=== PATIENT | female | born 1960 | race Caucasian/White ===

== ENCOUNTER → 2021-10-11 | Outpatient (CLI) | payer BC ==
--- NOTE | 2021-10-11 18:23 | REPMRS ---
Patient History The patient states she has not had a clinical breast exam in over a year. Patient is postmenopausal and is nulliparous. No known family history of cancer. Took hormonal contraceptives for 5 years. Patient states no breast complaints today. Patient has signed MRS History Sheet. Digital Woman Screen Mammo: October 11, 2021 - Exam #: [id number] Bilateral CC and MLO view(s) were taken. Technologist: Darleen Villarreal, Finisher Operator Prior study comparison: August 31, 2020, bilateral screening 3D/tomosynthesis, performed at [facility]. March 26, 2019, bilateral screening 3D/tomosynthesis, performed at [facility]. Screening. Digital screening (2D) mammography was performed bilaterally in the CC and MLO projections. Additionally, breast tomosynthesis (3D mammography) was performed bilaterally in the CC and MLO projections. Todays exam was compared to the prior exam/exams. By history, the patient has no complaints of a palpable breast abnormality or other significant breast complaints. The Volpara volumetric breast density category is B, there are scattered areas of fibroglandular densities. There is a radioopaque disk marking the location of a mole on the right breast. The breasts are unchanged in size and shape. There are no anat-soft tissue densities or spiculated masses. There is no internal architectural distortion. There are no suspicious anat-calcific clusters. Skin thickening or nipple retraction is not present. IMPRESSION: BI-RADS Category 2- Benign Findings. There is no evidence of malignant alteration of the breasts. Followup examination recommended in one year. The lifetime Tyrer-Cuzick score is 8.4% This mammogram was read with the assistance of Alec [employer],an FDA approved computer aided detection system for mammography. Negative x-ray reports should not delay surgical consultation if a dominant or clinically suspicious mass is present. Not all breast cancers can be identified by mammography. Therefore, we recommend that you continue to perform regular breast self-examination and physical examination and then promptly contact your physician of any concerns or changes. Adenosis and dense breasts may obscure an underlying neoplasm. No significant changes when compared with prior studies. Assessment: BI-RADS/ACR category 2 mammogram. Benign Findings. Recommendation Routine screening mammogram of both breasts in 1 year. Electronically Signed By: Adalid Arauz MD 10/11/21 [id number]
== END ==
LOC: M WHC 15:17
PROVIDERS: ATTEND Family Medicine
DX: Z12.39 Encounter for other screening for malignant neoplasm of breast (principal); Z78.0 Asymptomatic menopausal state

== ENCOUNTER 2021-10-20 08:01 | Emergency (ER) | payer BC ==
[~2021-10-20] VITALS: Ht 162.6 cm; Wt 83.2 kg
[2021-10-20] MEDS ORDERED: LEVO100T5 (08:07)
[2021-10-20] MEDS ORDERED: ATOR1TAB21 (08:07)
[2021-10-20] MEDS ORDERED: FURO40TA2 (08:07)
[2021-10-20] MEDS ORDERED: POTA10CA32 (08:07)
[2021-10-20 08:42] LABS: BASO % 0.5 % (0.0-1.0); EOS # 0.1 10^3/uL (0.0-0.5); EOS % 1.2 % (0.0-3.0); HEMATOCRIT 43.5 % (36.0-47.0); HEMOGLOBIN 14.5 g/dl (12.0-15.5); LYMPH # 1.9 10^3/uL (1.5-5.0); LYMPH % 24.6 % (24.0-44.0); MEAN CORPUSCULAR HEMOGLOBIN 31.7 pg (27.0-33.0); MEAN CORPUSCULAR HGB CONC 33.3 g/dl (32.0-36.5); MONO # 1.1 10^3/uL (0.0-0.8); MONO % 14.8 % (2.0-8.0); NEUTROPHILS # 4.5 10^3/uL (1.5-8.5); NEUTROPHILS % 58.2 % (36.0-66.0); PLATELET COUNT, AUTOMATED 302 10^3/uL (150-450); RED BLOOD COUNT 4.58 10^6/uL (4.00-5.40); WHITE BLOOD COUNT 7.6 10^3/uL (4.0-10.0)
[2021-10-20 09:10] LABS: ALBUMIN 3.7 GM/DL (3.2-5.2); BILIRUBIN,DIRECT 0.1 MG/DL (0.0-0.2); BILIRUBIN,TOTAL 0.5 MG/DL (0.2-1.0); TOTAL PROTEIN 7.2 GM/DL (6.4-8.2)
--- OUTSIDE RECORDS SUMMARY | 2021-10-20 09:17 | CCD ---
Author Author [facility] Organization [facility] Address Unknown Phone Unavailable Care Team Providers Care Driller And Broacher Name Role Phone Maring, Cosme PA Unavailable Unavailable Maring, Cosme PA Unavailable Unavailable Maring, Cosme PA Unavailable Unavailable Maring, Cosme PA Unavailable Unavailable Maring, Cosme PA Unavailable Unavailable Maring, Cosme PA Unavailable Unavailable Maring, Cosme PA Unavailable Unavailable Maring, Cosme PA Unavailable Unavailable Maring, Cosme PA Unavailable Unavailable Maring, Cosme PA Unavailable Unavailable Maring, Cosme PA Unavailable Unavailable Maring, Cosme PA Unavailable Unavailable Maring, Cosme PA Unavailable Unavailable Maring, Cosme PA Unavailable Unavailable Maring, Cosme PA Unavailable Unavailable Maring, Cosme PA Unavailable Unavailable Re-disclosure Warning The records that you are about to access may contain information from federally-assisted alcohol or drug abuse programs. If such information is present, then the following federally mandated warning applies: This information has been disclosed to you from records protected by federal confidentiality rules (42 CFR part 2). The federal rules prohibit you from making any further disclosure of this information unless further disclosure is expressly permitted by the written consent of the person to whom it pertains or as otherwise permitted by 42 CFR part 2. A general authorization for the release of medical or other information is NOT sufficient for this purpose. The Federal rules restrict any use of the information to criminally investigate or prosecute any alcohol or drug abuse patient.The records that you are about to access may contain highly sensitive health information, the redisclosure of which is protected by Article 27-F of the [facility] Public Health law. If you continue you may have access to information: Regarding HIV / AIDS; Provided by facilities licensed or operated by the [facility] Office of Mental Health; or Provided by the [facility] Office for People With Developmental Disabilities. If such information is present, then the following [facility] mandated warning applies: This information has been disclosed to you from confidential records which are protected by state law. State law prohibits you from making any further disclosure of this information without the specific written consent of the person to whom it pertains, or as otherwise permitted by law. Any unauthorized further disclosure in violation of state law may result in a fine or halfway sentence or both. A general authorization for the release of medical or other information is NOT sufficient authorization for further disc losure. Family History Family Member Name Family Member Gender Family Member Status Date o f Status Description Data Source(s) Unknown Unknown Problem [facility] ([facility] Unknown Unknown Problem [facility]) Encounters Encounter Providers Location Date Indications Data Source(s ) Outpatient Attender: Cosme TREVINO 10/20/20 07:12:32 AM EST - 10/20/2021 07:45:04 AM EST [facility] ([facility] ) Immunizations Vaccine Date Status Description Data Source(s) COVID-19 VACCINE Moderna 03/08/2021 12:00:00 AM EDT completed [facility] Vaccine Series Complete: YESThis Data wa s Submitted to [facility] [employer]. COVID-19 VACCINE Moderna 03/08/2021 12:00:00 AM EDT completed [facility] Vaccine Series Complete: YESThis Data wa s Submitted to [facility] [employer]. COVID-19 VACCINE, MRNA-1273, LNP-S (MODERNA)/PF 03/08/2021 1 2:00:00 AM EDT completed [facility] COVID-19 VACCINE Moderna 02/04/2021 12:00:00 AM EST completed [facility] Vaccine Series Complete: NOThis Data was Submitted to [facility] [employer]. COVID-19 VACCINE, MRNA-1273, LNP-S (MODERNA)/PF 02/04/2021 1 2:00:00 AM EST completed [facility] Medications No Information Insurance Providers Payer name Policy type / Coverage type Policy ID Covered constitution party ID Covered constitution party's relationship to harris Policy Harris Plan Information [employer] - [place] Blue [employer]/B lue Shield [id number] Self [id number] [place] 302/307 [id number] SP [id number] [place] 302/[id number] SP [id number] [employer]BS B [id number] S [id number] [employer] [id number] Self Problems, Conditions, and Diagnoses No Information Surgeries/Procedures No Information Results ID Date Data Source [id number] 03/14/2021 12:00:00 AM EDT [facility] Name Value Range Interpretation Code Description Data Ora rce(s) Supporting Document(s) SARS-CoV2 Rapid Antigen f [facility] This lab was ordered by [facility] and reported by [facility] ID Date Data Source [id number] 03/06/2021 12:00:00 AM EDT [facility] Name Value Range Interpretation Code Description Data Ora rce(s) Supporting Document(s) SARS-CoV2 Rapid Antigen Negative [facility] This lab was ordered by [facility] and reported by [facility] ID Date Data Source [id number] 02/27/2021 12:00:00 AM EDT [facility] Name Value Range Interpretation Code Description Data Ora rce(s) Supporting Document(s) SARS-CoV2 Rapid Antigen Negative [facility] This lab was ordered by [facility] and reported by [facility] ID Date Data Source [id number] 08/31/2020 12:00:00 AM EDT [facility] Enrique Chiu MD Patient Name: NICCI ORTEZ[facility] Date of : 1960[address] Date of Exam:08/31/2020ANNIE Angel [id number]#: Fax: [phone] EXAM: MAMMO SCREENING WITH CADCLINICAL INFORMATION: Screening.Based on the personal and family history information your patient suppliedat the time of imaging, her lifetime risk of breast cancer estimated by theTyrer-Cuzick model is 7.1%. Given that this patient has less than 20% TCrisk score, no further medical management is currently recommended at thistime.Digital screening (2D) mammography was performed bilaterally in the CC andMLO projections. Additionally, breast tomosynthesis (3D mammography) wasperformed bilaterally in the CC and MLO projections. Today's exam wascompared to the prior exam(s).By history, the patient has no complaints of a palpable breast abnormalityor other significant breast complaints.The patient states that a clinical breast exam was not performed.The breasts are unchanged in size and shape. There are no anat- soft tissuedensities or spiculated masses. There is no internal architecturaldistortion. There are no suspicious anat-calcific clusters. Skinthickening or nipple retraction is not present. Benign calcifications areagain seen bilaterally.The Volpara volumetric breast density category is B, there are scatteredareas of fibroglandular density.IMPRESSION:BI-RADS Category 2 - Benign Finding(s). Stable mammogram. There is noevidence of malignant alteration of the breasts. Followup examinationrecommended in one year.This mammogram was read with the assistance of Alec REDDING, an FDAapproved computer aided detection system for mammography.Negative x-ray reports should not delay surgical consultation if a dominantor clinically suspicious mass is present.Not all breast cancers can be identified by mammography. Therefore, werecommend that you continue to perform regular breast self-examination andphysical examination and then promptly contact your physician of anyconcerns or changes.Adenosis and dense breasts may obscure an underlying neoplasm.GINI Guallpa/Celia you for referring NICCI ORTEZ to our office. Electronically Signed - MCKINLEY EDGAR DO 09/01/20 15:14 Name Value Range Interpretation Code Description Data Ora rce(s) Supporting Document(s) Procedure Social History No Information
[2021-10-20] MEDS ORDERED: NS 1,000 ML IV ONE (10:45)
[2021-10-20] MEDS ORDERED: CHOLESTYRAMINE 4 GM PWD PKT PO ONE (10:45)
[2021-10-20] MEDS ORDERED: POTASSIUM CHLORIDE 10MEQ SR TABLET PO ONE (12:10)
[2021-10-20] MEDS ORDERED: QUES4POW PO (12:21)
[2021-10-20 12:30] VITALS: BP 135/64
== END 2021-10-20 12:42 | disposition home or self-care (01) ==
LOC: M ED 08:01
DX: A05.9 Bacterial foodborne intoxication, unspecified (principal); E78.5 Hyperlipidemia, unspecified

== ENCOUNTER → 2021-10-21 | Outpatient (REF) | payer BC ==
[~2021-10-21] MED LIST: ATOR1TAB21; FURO40TA2; LEVO100T5; POTA10CA32; QUES4POW PO
== END ==
LOC: M LAB REF 10:00
PROVIDERS: ATTEND Emergency Medicine
DX: R19.7 Diarrhea, unspecified (principal)

== ENCOUNTER 2022-05-18 10:51 | Emergency (ER) | payer BC ==
[~2022-05-18] VITALS: Ht 162.6 cm; Wt 84.2 kg
[2022-05-18] MEDS ORDERED: NS 1,000 ML IV ONE (13:05)
[2022-05-18 13:39] LABS: BASO % 0.4 % (0.0-1.0); EOS # 0.1 10^3/uL (0.0-0.5); EOS % 1.5 % (0.0-3.0); HEMATOCRIT 41.7 % (36.0-47.0); HEMOGLOBIN 13.9 g/dl (12.0-15.5); LYMPH # 2.4 10^3/uL (1.5-5.0); LYMPH % 31.5 % (24.0-44.0); MEAN CORPUSCULAR HEMOGLOBIN 31.9 pg (27.0-33.0); MEAN CORPUSCULAR HGB CONC 33.3 g/dl (32.0-36.5); MEAN CORPUSCULAR VOLUME 95.6 fl (80.0-96.0); MONO # 0.5 10^3/uL (0.0-0.8); MONO % 6.6 % (2.0-8.0); NEUTROPHILS # 4.5 10^3/uL (1.5-8.5); NEUTROPHILS % 59.5 % (36.0-66.0); PLATELET COUNT, AUTOMATED 301 10^3/uL (150-450); RED BLOOD COUNT 4.36 10^6/uL (4.00-5.40); WHITE BLOOD COUNT 7.5 10^3/uL (4.0-10.0)
[2022-05-18 13:51] LABS: INR 0.99; PROTHROMBIN TIME 13.5 SECONDS (12.7-14.5)
[2022-05-18 13:52] LABS: PARTIAL THROMBOPLASTIN TIME 28.4 SECONDS (25.9-37.0)
[2022-05-18 14:17] LABS: ALBUMIN 4.2 GM/DL (3.2-5.2); ALT/SGPT 20 U/L (12-78); BILIRUBIN,DIRECT 0.2 MG/DL (0.0-0.2); BILIRUBIN,TOTAL 0.6 MG/DL (0.2-1.0); BLOOD UREA NITROGEN 16 MG/DL (7-18); CALCIUM LEVEL 9.8 MG/DL (8.8-10.2); CARBON DIOXIDE LEVEL 32 MEQ/L (21-32); CHLORIDE LEVEL 99 MEQ/L (98-107); CREATININE FOR GFR 0.65 MG/DL (0.55-1.30); GLOMERULAR FILTRATION RATE > 60.0 (>45); GLUCOSE, FASTING 88 MG/DL (70-100); SODIUM LEVEL 139 MEQ/L (136-145); TOTAL PROTEIN 7.4 GM/DL (6.4-8.2)
[2022-05-18] MEDS ORDERED: ISOVUE-370 76% 100ML VIAL As Ordered ONE (14:28)
[2022-05-18] MEDS ORDERED: POTASSIUM CHLORIDE 10MEQ SR TABLET PO ONE (15:25)
[2022-05-18 15:44] LABS: APPEARANCE, URINE CLEAR (CLEAR); BACTERIA, URINE AUTO NEGATIVE (NEGATIVE); BILIRUBIN, URINE AUTO NEGATIVE (NEGATIVE); BLOOD, URINE BLOOD 1+ (NEGATIVE); COLOR, URINE YELLOW (YELLOW); GLUCOSE, URINE (UA) AUTO NEGATIVE (NEGATIVE); KETONE, URINE AUTO TRACE mg/dL (NEGATIVE); LEUKOCYTE ESTERASE, URINE AUTO 1+ (NEGATIVE); NITRITE, URINE AUTO NEGATIVE (NEGATIVE); PROTEIN, URINE AUTO NEGATIVE (NEGATIVE); RBC, URINE AUTO 1 /HPF (0-3); SPECIFIC GRAVITY URINE AUTO 1.058 (1.002-1.035); SQUAMOUS EPITHELIAL CELL UR AU 0 /HPF (0-6); UROBILINOGEN, URINE AUTO 0.2 mg/dL (0.0-2.0); WBC, URINE AUTO 5 /HPF (0-3)
[2022-05-18] MEDS ORDERED: NAPR-837 PO (15:50)
[2022-05-18] MEDS ORDERED: METH-1164 PO (15:50)
[2022-05-18] MEDS ORDERED: POTA1TAB14 PO (15:50)
[2022-05-18 15:55] VITALS: BP 144/67
== END 2022-05-18 16:10 | disposition home or self-care (01) ==
LOC: M ED 10:51
DX: M54.50 Low back pain, unspecified (principal); M62.838 Other muscle spasm; E87.6 Hypokalemia; E03.9 Hypothyroidism, unspecified; E78.5 Hyperlipidemia, unspecified; Z79.899 Other long term (current) drug therapy; Z79.890 Hormone replacement therapy
CPT/HCPCS: 74177; 80048; 80076; 81001; 85025; 85610; 85730; 86850; 86900; 86901; 93005; 96360; 96361; 99284; Q9967

== ENCOUNTER → 2022-06-03 | Outpatient (CLI) | payer BC ==
[~2022-06-03] MED LIST changes: +METH-1164 PO; +NAPR-837 PO; +POTA1TAB14 PO
== END ==
LOC: M PLAIMG 12:44
PROVIDERS: ATTEND Family Medicine
DX: M25.78 Osteophyte, vertebrae (principal); M48.07 Spinal stenosis, lumbosacral region; M16.12 Unilateral primary osteoarthritis, left hip; M25.552 Pain in left hip; R07.82 Intercostal pain

== ENCOUNTER → 2022-10-12 | Outpatient (CLI) | payer BC | LOC: M WHC 16:15 | PROVIDERS: ATTEND Family Medicine | DX: Z12.31 Encounter for screening mammogram for malignant neoplasm of breast (principal) ==

== ENCOUNTER → 2024-10-29 | Outpatient (CLI) | payer MEDICARE, OTHER ==
[~2024-10-29] MED LIST changes: +POTA-298 PO; -POTA10CA32; +POTA10CA70; -POTA1TAB14 PO
== END ==
LOC: M WHC 09:05
PROVIDERS: ATTEND Physician Assistant
DX: Z12.31 Encounter for screening mammogram for malignant neoplasm of breast (principal); Z13.820 Encounter for screening for osteoporosis; M85.852 Other specified disorders of bone density and structure, left thigh; R92.313 Mammographic fatty tissue density, bilateral breasts

== ENCOUNTER 2025-10-08 06:26 | Day surgery (SDC) | payer MEDICARE ==
[~2025-10-08] VITALS: Ht 162.6 cm; Wt 92.8 kg
[~2025-10-08 06:26] MED LIST changes: -ATOR1TAB21; +ATOR1TAB21 PO; -FURO40TA2; +FURO40TA2 PO; -LEVO100T5; +LEVO100T5 PO; +METF-838 PO; +VITA200016 PO; +[UNRECOGNIZED DRUG - CODE] PO
[2025-10-08] MEDS ORDERED: LIDOCAINE 2% 100 MG/5 ML SDV (FOR ANES.) As Ordered ONE (07:20)
[2025-10-08] MEDS ORDERED: PHENYLephrine 500MCG 5ML (100MCG/ML) SYRINGE As Ordered ONE (07:48)
[2025-10-08 08:13] VITALS: TEMP 97.7
[2025-10-08 08:29] VITALS: BP 131/74; O2SAT 95
== END 2025-10-08 08:39 | disposition home or self-care (01) ==
LOC: M OPP 06:26
PROVIDERS: ATTEND Internal Medicine Gastroenterology
DX: Z12.11 Encounter for screening for malignant neoplasm of colon (principal); R19.5 Other fecal abnormalities; D12.6 Benign neoplasm of colon, unspecified; K57.30 Diverticulosis of large intestine without perforation or abscess without bleeding; K64.0 First degree hemorrhoids; Z79.899 Other long term (current) drug therapy
CPT/HCPCS: 45385; 88305; J2371

== ENCOUNTER → 2025-11-07 | Outpatient (CLI) | payer MEDICARE | LOC: M WHC 14:25 | DX: Z12.31 Encounter for screening mammogram for malignant neoplasm of breast (principal) ==